=== PATIENT | female | born 1995 | race Caucasian/White ===

== ENCOUNTER 2017-08-28 03:52 | Observation (INO) | payer OTHER ==
[2017-08-28] MEDS ORDERED: KETOROLAC 15 MG/1 ML SDV ONE (04:08)
[2017-08-28] MEDS ORDERED: ONDANSETRON 4 MG/2 ML VIAL ONE (04:08)
[2017-08-28] MEDS ORDERED: NS 1,000 ML IV ONE ×2 (04:28→05:58)
[2017-08-28] MEDS ORDERED: ONDANSETRON 4 MG/2 ML VIAL IVP ONE (04:29)
[2017-08-28] MEDS ORDERED: KETOROLAC 15 MG/1 ML SDV IVP ONE (04:29)
[2017-08-28] MEDS ORDERED: LIDOCAINE 1% 150 MG in NS 100 ML IV ONE (04:38)
[2017-08-28 04:51] LABS: PLATELET COUNT 313 10^3/uL (150-400)
--- NOTE | 2017-08-28 05:40 | EDPHY ---
H & P Stated Complaint: L flank pain Source: Patient Exam Limitations: No limitations - Personal History LMP (Females 10-55): IUD In Place Current Tetanus/Diphtheria Vaccine: Yes - Medical/Surgical History Hx Asthma: No Hx Chronic Respiratory Disease: No Hx Diabetes: No Hx Cardiac Disease: No Hx Renal Disease: No Hx Cirrhosis: No Hx Alcoholism: No Hx HIV/AIDS: No Hx Splenectomy or Spleen Trauma: No Other PMH: kidney stones, ADHD, anxiety - Social History Smoking Status: Never smoked <Carmen George - Last Filed: 08/28/17 07:10> <Larry Warren - Last Filed: 08/28/17 09:56> Time Seen by Provider: 08/28/17 04:13 HPI/ROS: HPI The patient presents with left-sided flank pain which has been present since about 3:30 a.m. This morning which has been constant, is sharp, severe in nature. It was associated with hematuria which she was experiencing yesterday. She has not had any fevers or chills. She has a history of ureterolithiasis, 3 prior episodes. She has passed the stones on her own each time. She has had CT scans positive for kidney stone. She does also have a history of pyelonephritis.. REVIEW OF SYSTEMS Constitutional: No fever, no chills. Eyes: No discharge. ENT: No sore throat. Cardiovascular: No chest pain, no palpitations. Respiratory: No cough, no shortness of breath. Gastrointestinal: No abdominal pain, no vomiting. Genitourinary: Positive for hematuria. Musculoskeletal: No back pain. Skin: No rashes. Neurological: No headache. PMHx: Ureterolithiasis Soc Hx: Housed PHYSICAL General Appearance: Alert, uncomfortable appearing Eyes: Pupils equal and round no pallor or injection ENT, Mouth: Mucous membranes moist Respiratory: There are no retractions, lungs are clear to auscultation Cardiovascular: Regular rate and rhythm Gastrointestinal: Abdomen is soft and non-tender, no masses, bowel sounds normal Back: Left flank tender to palpation Neurological: A&O, moves all extremities Skin: Warm and dry, no rashes Musculoskeletal: Neck is supple non tender Extremities: symmetrical, full range of motion Psychiatric: Patient is oriented X 3, there is no agitation (Carmen George) Constitutional: Initial Vital Signs Temperature (C) 36.5 C 03/13/18 03:59 Heart Rate 96 08/28/17 03:59 Respiratory Rate 18 08/28/17 03:59 Blood Pressure 132/86 H 08/28/17 03:59 O2 Sat (%) 93 08/28/17 03:59 O2 Delivery Mode Room Air Allergies/Adverse Reactions: No Known Allergies Allergy (Unverified 05/19/16 13:03) Home Medications: Medication Instructions Recorded ALPRAZolam [Xanax 0.5 MG (*)] 0.5 mg PO DAILY PRN 08/28/17 Cholecalciferol Vit D3 [Vitamin D3 1,000 units PO DAILY 08/28/17 (*)] Cyanocobalamin [Vitamin B12 (*)] 1,000 mcg PO DAILY 08/28/17 Dextroamphetamine/Amphetamine 10 mg PO DAILY PRN 08/28/17 [Adderall Xr 10 mg Capsule] Ferrous Sulfate [Ferrous Sulf 325 325 mg PO DAILY 08/28/17 MG (*)] Herbals/Supplements -Info Only 1 each PO DAILY 08/28/17 Hydrocodone/APAP 5/325 [[place] 1 - 2 tab PO Q6H PRN #15 tab 08/28/17 5/325 (*)] Ondansetron Odt [Zofran Odt 4 mg 4 mg PO Q4 PRN #10 tab 08/28/17 (*)] Pregabalin [Lyrica] 25 mg PO BID 08/28/17 Tamsulosin HCl [Flomax 0.4 MG (*)] 0.4 mg PO DAILY #10 cap 08/28/17 Medical Decision Making <Carmen George - Last Filed: 08/28/17 07:10> - Diagnostics Imaging: Discussed imaging studies w/ nursing home admissions director Radiologist <Larry Warren - Last Filed: 08/28/17 09:56> - Diagnostics Imaging Results: Imaging Impressions Abdomen X-Ray 08/28/17 06:19 Impression: 1. Negative upright abdominal radiograph. Abdomen/Pelvis CT 08/28/17 08:39 Impression: 1. Mild left hydroureteronephrosis secondary to a 1 mm obstructing calculus in the distal left ureter with left perinephric stranding consistent with superimposed left pyelonephritis. 2. Nonobstructive right nephrolithiasis. 3. IUD without adnexal masses or free fluid in the pelvis. 4. A few benign mesenteric lymph nodes suggesting mesenteric lymphadenitis. Attention: This CT examination is specifically designed to evaluate patients who are clinically suspected of having acute obstructive uropathy. This examination does not use radiographic contrast, and as such, provides only a limited evaluation of the abdomen, pelvis and retroperitoneum. If there is further clinical suspicion for pathological conditions other than obstructive uropathy, a complete CT evaluation of the abdomen and pelvis utilizing intravenous, oral, and rectal contrast should be considered. Findings and recommendations discussed with Emergency Department physician, Larry Warren MD, at 9:05 a.m., 08/28/2017. Final report concurs with initial preliminary interpretation. KUB 1 view: no obvious kidney stone, interpreted by me, formal read pending. ( Carmen George) Procedures: Bedside limited abdominal Ultrasound- performed and interpreted by me. Indication: Left-sided flank pain Findings: Mild Left-sided hydronephrosis, no free fluid, no pleural effusion Impression: Mild Left-sided hydronephrosis (Carmen George) Differential Diagnosis: This is a 21-year-old healthy female who presents with several hours of left- sided flank pain associated with hematuria. Differential diagnosis includes ureterolithiasis, pyelonephritis, less likely appendicitis. In the emergency department, patient received IV fluids, Zofran, Toradol, lidocaine drip with improvement in her symptoms. However, her symptoms recurred and she was given a dose of fentanyl with a 2nd L of fluid. Bedside ultrasound was performed which demonstrated left-sided hydronephrosis which is mild. She has not been able to urinate yet. At 7am, the case is signed out to Dr Warren, pending UA and reassessment. I anticipate she will be able to discharge home. Though if her pain persists, she may require admission for pain control. (Carmen George) Other Provider: 0700: Assumed care of this patient at shift change from Dr. George pending labs. 0830: Reassessed patient and discussed work up. Patient has a history of kidney stones and presents with several hours of left-sided flank pain. Ultrasound showed left-sided hydronephrosis. UA indicates concurrent UTI. She tells me this is her 4th kidney stone and she has not seen a urologist for these in the past. She continues to be in significant pain after 15mg IV Toradol, lidocaine drip, 50mcg IV Fentanyl, 0.5mg IV Dilaudid, and is currently sitting on the floor grimacing. I recommended admission for pain management and urology consult as she may requiring stenting for this. 1gm IV ceftriaxone and abdominal CT ordered. Will continue pain management as needed. Spoke with hospitalist service. Dr. Zepeda accepts admission. Requests urology consult prior to moving up to the floor. CT abdomen shows obstructing 1-2mm distal left ureteral stone, stranding around kidney indicative of pyelonephritis. Urology paged. [id number]: Consulted with Dr. Velasquez, urology. He recommends Flomax and will consult during admission. (Larry Warren) - Data Points Laboratory Results: Laboratory Results 08/28/17 04:30 08/28/17 04:30 08/28/17 08/28/17 08/28/17 07:50 04:30 04:30 WBC 10.54 10^3/uL H 10^3/uL (3.80-9.50) RBC 5.24 10^6/uL 10^6/uL (4.18-5.33) Hgb 15.9 g/dL g/dL (12.6-16.3) Hct 44.9 % % (38.0-47.0) MCV 85.7 fL fL (81.5-99.8) MCH 30.3 pg pg (27.9-34.1) MCHC 35.4 g/dL g/dL (32.4-36.7) RDW 12.4 % % (11.5-15.2) Plt Count 313 10^3/uL 10^3/uL (150-400) MPV 10.0 fL fL (8.7-11.7) Neut % (Auto) 57.4 % % (39.3-74.2) Lymph % (Auto) 33.9 % % (15.0-45.0) [place] % (Auto) 6.3 % % (4.5-13.0) Eos % (Auto) 1.5 % % (0.6-7.6) Baso % (Auto) 0.4 % % (0.3-1.7) Nucleat RBC Rel Count 0.0 % % (0.0-0.2) Absolute Neuts (auto) 6.06 10^3/uL 10^3/uL (1.70-6.50) Absolute Lymphs (auto) 3.57 10^3/uL H 10^3/uL (1.00-3.00) Absolute Monos (auto) 0.66 10^3/uL 10^3/uL (0.30-0.80) Absolute Eos (auto) 0.16 10^3/uL 10^3/uL (0.03-0.40) Absolute Basos (auto) 0.04 10^3/uL 10^3/uL (0.02-0.10) Absolute Nucleated RBC 0.00 10^3/uL 10^3/uL (0-0.01) Immature Gran % 0.5 % % (0.0-1.1) Immature Gran # 0.05 10^3/uL 10^3/uL (0.00-0.10) Sodium 146 mEq/L H mEq/L (135-145) Potassium 4.2 mEq/L mEq/L (3.5-5.2) Chloride 106 mEq/L mEq/L (97-110) Carbon Dioxide 21 mEq/l L mEq/l (22-31) Anion Gap 19 mEq/L H mEq/L (8-16) BUN 16 mg/dL mg/dL (7-23) Creatinine 0.8 mg/dL mg/dL (0.6-1.0) Estimated GFR > 60 Glucose 80 mg/dL mg/dL (70-100) Calcium 10.2 mg/dL mg/dL (8.5-10.4) Urine Color JEANNE Urine Appearance MODERATELY TURBID Urine pH 5.0 (5.0-7.5) Ur Specific [place] > 1.035 H (1.002-1.030) Urine Protein 2+ H (NEGATIVE) Urine Ketones NEGATIVE (NEGATIVE) Urine Blood 3+ H (NEGATIVE) Urine Nitrate NEGATIVE (NEGATIVE) Urine Bilirubin NEGATIVE (NEGATIVE) Urine Urobilinogen NEGATIVE EU EU (0.2-1.0) Ur Leukocyte Esterase 1+ H (NEGATIVE) Urine RBC 50-182 /hpf H /hpf (0-3) Urine WBC 25-50 /hpf H /hpf (0-3) Ur Epithelial Cells 2+ /lpf H /lpf (NONE-1+) Urine Bacteria 3+ /hpf H /hpf (NONE SEEN) Urine Mucus 4+ /lpf H /lpf (NONE-1+) Urine Yeast PRESENT /hpf /hpf (NONE SEEN) Urine Glucose NEGATIVE (NEGATIVE) Medications Given: Discontinued Medications Fentanyl (Sublimaze) 50 mcg IVP EDNOW ONE Stop: 08/28/17 05:59 Last Admin: 08/28/17 06:13 Dose: 50 mcg Hydromorphone HCl (Dilaudid) 0.5 mg IVP EDNOW ONE Stop: 08/28/17 07:16 Last Admin: 08/28/17 07:26 Dose: 0.5 mg Hydromorphone HCl (Dilaudid) 1 mg IVP EDNOW ONE Stop: 08/28/17 09:07 Last Admin: 08/28/17 09:08 Dose: 1 mg Sodium Chloride (Ns) 1,000 mls @ 0 mls/hr IV EDNOW ONE; Wide Open PRN Reason: Protocol Stop: 08/28/17 04:29 Last Admin: 08/28/17 04:29 Dose: 1,000 mls Lidocaine HCl 150 mg/ Sodium (Chloride) 115 mls @ 600 mls/hr IV EDNOW ONE Stop: 08/28/17 04:49 Last Admin: 08/28/17 05:04 Dose: 115 mls Sodium Chloride (Ns) 1,000 mls @ 0 mls/hr IV EDNOW ONE; Wide Open PRN Reason: Protocol Stop: 08/28/17 05:59 Last Admin: 08/28/17 06:13 Dose: 1,000 mls Ceftriaxone Sodium 2 gm/ (Sterile Water) 20 mls @ 300 mls/hr IV EDNOW ONE PRN Reason: Protocol Stop: 08/28/17 08:39 Last Admin: 08/28/17 09:21 Dose: 20 mls Ketorolac Tromethamine (Toradol) 15 mg IVP EDNOW ONE Stop: 08/28/17 04:30 Last Admin: 08/28/17 04:30 Dose: 15 mg Ondansetron HCl (Zofran) 4 mg IVP EDNOW ONE Stop: 08/28/17 04:30 Last Admin: 08/28/17 04:30 Dose: 4 mg Departure Carmen Hinojosa - Last Filed: 08/28/17 07:10> <Larry Warren - Last Filed: 08/28/17 09:56> - Departure Disposition: [facility] Acute Clinical Impression: Renal colic on left side, Kidney stone on left side, Pyelonephritis, Intractable pain Condition: Fair
[2017-08-28] MEDS ORDERED: fentaNYL 100 MCG/2 ML INJ IVP ONE (05:58)
[2017-08-28] MEDS ORDERED: HYDROmorphONE/DILAUDID 2 MG/ML INJ IVP ONE (07:15)
[2017-08-28] MEDS ORDERED: cefTRIAXone 2 GM in STERILE WATER INJ 20 ML IV ONE (08:36)
[2017-08-28] MEDS ORDERED: TAMSULOSIN HCL 0.4 MG CAP PO SCH (09:00)
[2017-08-28] MEDS ORDERED: HYDROmorphONE/DILAUDID 1 MG/ML INJ IVP ONE (09:06)
[2017-08-28] MEDS ORDERED: ACETAMINOPHEN 325 MG TAB PO PRN (11:33)
[2017-08-28] MEDS ORDERED: oxyCODONE IR 5 MG TAB PO PRN (11:33)
[2017-08-28] MEDS ORDERED: ONDANSETRON 4 MG/2 ML VIAL IVP PRN (11:33)
[2017-08-28] MEDS ORDERED: PROMETHAZINE HCL 25 MG/ML INJ IVP PRN (11:33)
[2017-08-28] MEDS ORDERED: HYDROmorphONE/DILAUDID 2 MG/ML INJ IVP PRN (11:34)
[2017-08-28] MEDS ORDERED: KETOROLAC 30 MG/1 ML SDV IVP PRN (11:34)
[2017-08-28] MEDS ORDERED: ALPRAZolam 0.25 MG TAB PO PRN (11:36)
[2017-08-28] MEDS ORDERED: D5W 1/2 NS W/ 20 KCl/L 1,000 ML IV SCH (11:45)
--- NOTE | 2017-08-28 12:45 | GHP ---
[f rep st] HISTORY AND PHYSICAL DATE OF ADMISSION: 08/28/2017 CHIEF COMPLAINT: Kidney stone pain. HISTORY OF PRESENT ILLNESS: This is a 21-year-old female with history of kidney stones, who presente d to the emergency department this morning after she was awoken at 3:00 a.m. with sharp, intermittent 8/10 left-sided flank pain. She denies any fevers or chills. She denies any vomiting. She did not ice some blood in her urine that started maybe a few days ago. PAST MEDICAL HISTORY: Kidney stones which were all passed spontaneously. PAST SURGICAL HISTORY: [place] tooth extraction. HOME MEDICATIONS: Reviewed. Refer to [facility] for details. ALLERGIES: No known drug allergies. SOCIAL HISTORY: She drinks alcohol occasionally. She denies any tobacco or illicit drug use. FAMILY HISTORY: Significant for kidney stones in her mother and maternal grandfather. REVIEW OF SYSTEMS: Comprehensive 10-point review of systems was done and is negative, except for as mentioned in the HPI. PHYSICAL EXAM: VITAL SIGNS: Blood pressure 114/69, pulse 76, respiratory rate 16, O2 saturation 92% on room air. Temperature afebrile. GENERAL: No acute distress. HEAD: Normocephalic, atraumatic. Eyes: PERRLA. Sclerae anicteric. MOUTH: Moist mucous membranes. NECK: Supple. No lymphadenop athy. CARDIOVASCULAR: S1, S2. No JVD. No lower extremity edema. PULMONARY: Lungs are clear. No wheezes, rales, or rhonchi. ABDOMEN: Soft, nontender, nondistended. No guarding or rebound tender ness. Normoactive bowel sounds. EXTREMITIES: No clubbing or cyanosis. NEURO: Cranial nerves 2-12 grossly intact. No focal motor or sensory deficits. DIAGNOSTICS: WBC is 10.5, hemoglobin 15.9, hematocrit 44.9, platelets 313. Sodium 146, potassium 4. 2, chloride 106, CO2 21, BUN 16, creatinine 0.8, glucose 80. UA shows 2+ protein, 1+ leukocyte jorge ase, 25-50 WBCs, 3+ bacteria, 4+ mucus. CT of the abdomen and pelvis was reviewed and showed mild lef t hydroureteronephrosis secondary to a 1 mm obstructing calculus in the distal left ureter with left perinephric stranding consistent with superimposed left pyelonephritis, nonobstructive right nephroli thiasis as well. ASSESSMENT/PLAN: A 21-year-old female presenting with renal colic complicated by pyelonephritis and complicated urinary tract infection. PLAN: 1. The patient will be placed on observation. She has been started on Flomax and ceftriaxone, which will be continued. Dr. Mary Velasquez from [facility] has been consulted for further stone helen gemjordana. Her symptoms will be treated supportively with IV Toradol, antiemetics, and IV Dilaudid as n eeded for breakthrough pain. 2. Mild hypernatremia. 3. Will start D5 half normal saline with 20 mEq of KCl and repeat labs in the morning. /[id number]/MODL
[2017-08-28 16:27] VITALS: PULSE 78; RESP 17
[2017-08-28 16:28] VITALS: BP 97/55; TEMP 98; O2SAT 91
--- NOTE | 2017-08-28 21:58 | GDS ---
[f rep st] DISCHARGE SUMMARY DISCHARGE DIAGNOSES: 1. Renal colic with spontaneous passage of kidney stone. 2. Complicated urinary tract infection and pyelonephritis. CONSULTANTS: Dr. Velasquez. HOSPITAL COURSE AND STAY BY PROBLEM: 1. Renal colic and complicated UTI with pyelonephritis: The patient was placed on observation, wher e she received 2 g of IV Rocephin, IV fluids, and Flomax. On the evening of the day of her admission to the hospital, she spontaneously passed a stone and requested to leave the hospital. Dr. Velasquez w as alerted of this, and thought it was reasonable for the patient to be discharged. The patient was discharged with a 7-day course of Cipro. Stone was sent for analysis. Prior to discharge, I did shanthi k to the patient and urged her to seek medical attention if she develops any fever, recurrent pain, o r nausea and vomiting. She verbalized understanding of these instructions. DISCHARGE MEDICATIONS: Please refer to discharge medication reconciliation in [facility] for full deta ils. Below is a preliminary list: Cipro 500 mg p.o. twice daily for 7 days. All other home medications are continued at usual home dosages. DISCHARGE INSTRUCTIONS: The patient will be discharged home, where she was urged to seek follow up w ith her primary care provider in the next few days to review her pending blood and urine culture resu lts. Kidney stone was also sent for stone analysis. She has had multiple kidney stones in the past and has an extensive family history of kidney stones. She should discuss modalities to decrease her risks of kidney stones in the future. /[id number]/MODL
[2017-08-29] MEDS ORDERED: cefTRIAXone 1 GM in STERILE WATER INJ 10 ML IV SCH (09:00)
[2017-08-29] MEDS ORDERED: TAMSULOSIN HCL 0.4 MG CAP PO ONE (09:55)
== END 2017-08-28 19:29 | disposition home or self-care (01) ==
LOC: FOB 10:35
PROVIDERS: ADMIT Family Medicine; ATTEND Family Medicine
DX: N23 Unspecified renal colic (principal); N39.0 Urinary tract infection, site not specified; N12 Tubulo-interstitial nephritis, not specified as acute or chronic; Z87.442 Personal history of urinary calculi; Z97.5 Presence of (intrauterine) contraceptive device
CPT/HCPCS: 74018; 74176; G0378; 82365-90; J0696; J1170; J1885; J2405; J3010